=== PATIENT | male | born 1955 | race Caucasian/White ===

== ENCOUNTER 2018-12-27 14:30 | Emergency (ER) | payer OTHER ==
[~2018-12-27] VITALS: Ht 172.7 cm; Wt 96.2 kg
[2018-12-27 14:39] VITALS: Ht 172.7 cm; Wt 96.2 kg
[2018-12-27 15:32] LABS: BASOPHIL % 0.4 % (0-2); PLATELET COUNT 198 x10^3mcL (130-400); RED CELL DISTRIBUTION WIDTH 13.8 % (11.5-14.5)
[2018-12-27 15:38] LABS: CALCIUM 7.7 mg/dL (8.5-10.1); CARBON DIOXIDE 25.3 mmol/L (21-32); CHLORIDE SERUM 111 mmol/L (98-107); CREATININE SERUM 0.9 mg/dL (0.7-1.3); GFR1 > 60 mL/min; GLUCOSE SERUM 77 mg/dL (74-106); POTASSIUM SERUM 3.7 mmol/L (3.5-5.1); SODIUM SERUM 144 mmol/L (136-145)
[2018-12-27 15:44] LABS: ALKALINE PHOSPHATASE 51 U/L (46-116); ALT/SGPT 41 U/L (16-63); AST/SGOT 23 U/L (15-37); BILIRUBIN TOTAL 0.5 mg/dL (0.20-1.00); TOTAL PROTEIN, SERUM 6.6 g/dL (6.4-8.2)
[2018-12-27 15:47] LABS: ALBUMIN 3.3 g/dL (3.4-5.0)
[2018-12-27 16:39] VITALS: BP 135/78
== END 2018-12-27 16:39 | disposition home or self-care (01) ==
LOC: ED 14:30
PROVIDERS: Emergency Medicine
DX: J20.8 Acute bronchitis due to other specified organisms (principal); R07.89 Other chest pain; M19.90 Unspecified osteoarthritis, unspecified site
CPT/HCPCS: 36415; 87804

== ENCOUNTER 2019-10-21 09:38 | Emergency (ER) | payer OTHER ==
[~2019-10-21] VITALS: Ht 172.7 cm; Wt 94.0 kg
[2019-10-21 10:01] VITALS: Ht 172.7 cm; Wt 94.0 kg
[2019-10-21 11:48] VITALS: BP 147/93
== END 2019-10-21 11:48 | disposition home or self-care (01) ==
LOC: ED 09:38
DX: H43.811 Vitreous degeneration, right eye (principal); M19.90 Unspecified osteoarthritis, unspecified site; Z98.890 Other specified postprocedural states